=== PATIENT | female | born 1960 | race Two or more races ===

== ENCOUNTER → 2016-03-11 | Outpatient (CLI) | payer BC ==
--- NOTE | 2016-03-11 09:29 | MA ---
Left Unilateral Digital Diagnostic Mammogram History: Short-term follow up of probably benign microcalcifications. Comparison: Mammograms through August 18, 2011. Technique: Spot magnification CC and true lateral and CC and MLO implant displaced views. Images wer e reviewed with iCAD. Findings: Two benign-appearing clusters of calcifications in the anterior left breast are stable sinc e the comparison. Some are layering suggesting benign MOC. No suspicious masses or areas of ip network architect ural distortion are identified. Impression: BI-RADS 2: Benign Findings. Recommendations: Screening mammograms in May 2016. [facility] will send a result letter to the patient. Dr. Marcelo Celaya reviewed the study a nd agrees with the findings and recommendations.
== END ==
LOC: BRMIMAGING 08:37
DX: R92.1 Mammographic calcification found on diagnostic imaging of breast (principal)
CPT/HCPCS: G0206

== ENCOUNTER → 2016-10-23 | Outpatient (CLI) | payer BC | LOC: BRMIMAGING 12:38 | PROVIDERS: ATTEND Physician Assistant | DX: Z12.31 Encounter for screening mammogram for malignant neoplasm of breast (principal) | CPT/HCPCS: G0202 ==

== ENCOUNTER → 2017-01-12 | Outpatient (CLI) | payer BC | LOC: BRMIMAGING 09:30 | PROVIDERS: ATTEND Physician Assistant | DX: R92.8 Other abnormal and inconclusive findings on diagnostic imaging of breast (principal) | CPT/HCPCS: G0206 ==

== ENCOUNTER → 2017-12-07 | Outpatient (CLI) | payer BC | LOC: BRMIMAGING 14:39 | PROVIDERS: ATTEND Physician Assistant | DX: Z12.31 Encounter for screening mammogram for malignant neoplasm of breast (principal) ==

== ENCOUNTER → 2017-12-18 | Outpatient (CLI) | payer BC | LOC: BRMIMAGING 10:19 | PROVIDERS: ATTEND Physician Assistant | DX: N63.21 Unspecified lump in the left breast, upper outer quadrant (principal) | CPT/HCPCS: 76641-PO ==